=== PATIENT | male | born 1990 | race Caucasian/White ===

== ENCOUNTER 2016-09-04 23:51 | Inpatient (IN) | payer OTHER ==
[~2016-09-04] VITALS: Ht 167.6 cm; Wt 78.0 kg
[2016-09-05 04:37] VITALS: BP 122/66
[2016-09-05] MEDS ORDERED: PROZAC40 MG PO (07:08)
[2016-09-05] MEDS ORDERED: ZYPREXA10 MG PO (07:09)
[2016-09-05] MEDS ORDERED: DESYREL 150 MG150 MG PO (07:10)
[2016-09-05] MEDS ORDERED: NEURONTIN300 MG PO (07:10)
[2016-09-05] MEDS ORDERED: HYDROXYZINE PA100 MG PO (07:13)
[2016-09-05 07:57] VITALS: BP 114/63
[2016-09-05 15:45] VITALS: BP 96/55
[2016-09-06 07:12] VITALS: BP 92/54
[2016-09-06] MEDS ORDERED: NEURONTIN300 MG PO (12:06)
[2016-09-06] MEDS ORDERED: ZYPREXA15 MG PO (12:06)
[2016-09-06] MEDS ORDERED: HYDROXYZINE PA100 MG PO (12:06)
== END 2016-09-06 14:28 | disposition other institution (70) | DRG 885 ==
LOC: 1WEST 23:51
DX: F25.1 Schizoaffective disorder, depressive type (principal); R45.851 Suicidal ideations; Z59.0 Homelessness; F51.4 Sleep terrors [night terrors]
CPT/HCPCS: Q0177